=== PATIENT | female | born 1985 | race Caucasian/White ===

== ENCOUNTER 2016-08-22 09:53 | Emergency (ER) | payer OTHER ==
[2016-08-22] MEDS ORDERED: ONDANSETRON 4 MG ODT TAB ONE (10:57)
[2016-08-22] MEDS ORDERED: PREDNISONE 20 MG TABLET ONE (10:57)
== END 2016-08-22 11:17 | disposition home or self-care (01) ==
LOC: ED 09:53
DX: J02.0 Streptococcal pharyngitis (principal)